=== PATIENT | female | born 2000 | race Hispanic/Latino ===

== ENCOUNTER 2021-05-22 17:34 | Emergency (ER) | payer BC ==
[~2021-05-22] VITALS: Ht 157.5 cm; Wt 90.7 kg
[2021-05-22 17:37] VITALS: BP 144/92
[2021-05-22 18:18] LABS: BASOPHILS % (AUTO) 0.4 % (0.0-5.0); EOSINOPHILS % (AUTO) 1.3 % (0.0-8.0); HEMATOCRIT 40.8 % (36-48); LYMPHOCYTES % (AUTO) 21.7 % (21.0-51.0); MEAN CORPUSCULAR HEMOGLOBIN 27.5 pg (27.0-33.0); MEAN CORPUSCULAR HGB CONC 33.1 g/dL (32.0-36.0); MEAN CORPUSCULAR VOLUME 83.1 fL (80-100); MONOCYTES % (AUTO) 6.2 % (3.0-13.0); PLATELET COUNT (AUTO) 337 K/uL (130-400); RED BLOOD CELL COUNT(AUTO) 4.91 MIL/uL (4.00-5.50); RED CELL DISTRIBUTION WIDTH 11.9 % (11.0-15.5); WHITE BLOOD COUNT (AUTO) 9.6 K/uL (4.8-10.8)
[2021-05-22 18:30] LABS: CARBON DIOXIDE 26 mmol/L (21-32); CHLORIDE 103 mmol/L (101-111); CREATININE 0.8 mg/dL (0.5-1.5); GLOMERULAR FILTR. RATE CALC 96 mL/min (>60); GLUCOSE,RANDOM 93 mg/dL (70-105); POTASSIUM 4.1 mmol/L (3.5-5.1); SODIUM SERUM 139 mmol/L (136-145); UREA NITROGEN, BLOOD 12 mg/dL (7-18)
[2021-05-22 18:41] LABS: ALANINE AMINOTRANSFERASE 45 U/L (12-78); ASPARTATE AMINOTRANSFERASE 36 U/L (10-37); BILIRUBIN,TOTAL 1.3 mg/dL (0.2-1.0); CREATINE KINASE, TOTAL 156 U/L (21-232); MYOGLOBIN 27 ng/mL (10-92); TOTAL PROTEIN, SERUM 8.2 g/dL (6.0-8.3); TROPONIN I < 0.04 ng/mL (0.00-0.06)
[2021-05-22] MEDS ORDERED: LIDOCAINE HCL 2% VISCOUS 15 ML UDCUP PO ONE (21:15)
[2021-05-22] MEDS ORDERED: MAG/ALUM/SIMETH 30 ML UDCUP PO ONE (21:15)
[2021-05-22] MEDS ORDERED: FAMOTIDINE 20MG TAB PO ONE (21:15)
[2021-05-22 21:30] VITALS: BP 144/92
[2021-05-22] MEDS ORDERED: FAMO-136 PO (22:06)
[2021-05-22 22:18] VITALS: BP 135/82
== END 2021-05-22 22:25 | disposition home or self-care (01) ==
LOC: EDH 18:40
DX: K29.70 Gastritis, unspecified, without bleeding (principal); R07.89 Other chest pain; Z87.442 Personal history of urinary calculi
CPT/HCPCS: 36415; 71045; 80053; 81025; 82550; 83690; 83874; 84484; 85025; 93005

== ENCOUNTER 2021-06-24 02:29 | Emergency (ER) | payer BC ==
[~2021-06-24] VITALS: Ht 157.5 cm; Wt 92.1 kg
[~2021-06-24 02:29] MED LIST: FAMO-136 PO
[2021-06-24 02:42] VITALS: BP 143/82
[2021-06-24] MEDS ORDERED: 0.9%NACL 1000ML 1,000 ML IV ONE (03:00)
[2021-06-24] MEDS ORDERED: ONDANSETRON 4MG INJ ONE (03:17)
[2021-06-24] MEDS ORDERED: METOCLOPRAMIDE 10 MG/2 ML VIAL ONE (03:17)
[2021-06-24] MEDS ORDERED: KETOROLAC 30MG VIAL (30MG/ML) ONE (03:18)
[2021-06-24 03:29] LABS: APPEARANCE,URINE Clear (CLEAR); BILIRUBIN,URINE Negative (NEGATIVE); COLOR,URINE Yellow (YELLOW); GLUCOSE, URINE (UA) Negative (NEGATIVE); KETONES,URINE Trace mg/dL (NEGATIVE); LEUKOCYTE ESTERASE ,URINE Trace (NEGATIVE); NITRATE,URINE Negative (NEGATIVE); OCCULT BLOOD,URINE Large (NEGATIVE); PROTEIN,URINE Trace mg/dL (NEGATIVE)
[2021-06-24 03:29] LABS: BASOPHILS % (AUTO) 0.4 % (0.0-5.0); EOSINOPHILS % (AUTO) 1.1 % (0.0-8.0); LYMPHOCYTES % (AUTO) 20.5 % (21.0-51.0); MEAN CORPUSCULAR HEMOGLOBIN 28.9 pg (27.0-33.0); MEAN CORPUSCULAR HGB CONC 34.3 g/dL (32.0-36.0); MEAN CORPUSCULAR VOLUME 84.3 fL (80-100); MONOCYTES % (AUTO) 8.2 % (3.0-13.0); NEUTROPHILS % (AUTO) 69.6 % (40.0-77.0); PLATELET COUNT (AUTO) 291 K/uL (130-400); RED BLOOD CELL COUNT(AUTO) 4.39 MIL/uL (4.00-5.50); RED CELL DISTRIBUTION WIDTH 12.1 % (11.0-15.5)
[2021-06-24 03:30] LABS: CREATININE 0.9 mg/dL (0.5-1.5); POTASSIUM 3.8 mmol/L (3.5-5.1)
[2021-06-24 03:30] LABS: HCG,QUAL RESULT NEGATIVE (NEGATIVE)
[2021-06-24 03:31] VITALS: BP 136/74
[2021-06-24 03:35] LABS: ALBUMIN 3.7 g/dL (3.5-5.0); BILIRUBIN,TOTAL 0.9 mg/dL (0.2-1.0); TOTAL PROTEIN, SERUM 7.5 g/dL (6.0-8.3)
[2021-06-24 03:50] LABS: BACTERIA,URINE Few /HPF (None Seen); MUCUS,URINE Rare LPF (None Seen); WBC,URINE 0-1 /HPF (0-1)
[2021-06-24 03:51] LABS: CALCIUM OXALATE CRYSTALS,UR Few /LPF (None Seen)
[2021-06-24 04:47] VITALS: BP 139/71
[2021-06-24 05:54] VITALS: BP 127/73
[2021-06-24] MEDS ORDERED: TAMSULOSIN HCL 0.4 MG CAP.ER.24H ONE (06:12)
[2021-06-24 06:53] VITALS: BP 123/79
[2021-06-24] MEDS ORDERED: DiphenhydrAMINE HCL 50 MG/ML VIAL IV SCH (07:30)
[2021-06-24] MEDS ORDERED: MELO7.5T12 PO (07:52)
[2021-06-24] MEDS ORDERED: TAMS-1 PO (07:52)
[2021-06-24] MEDS ORDERED: DICY20TA2 PO (07:52)
[2021-06-24] MEDS ORDERED: ONDA4TAB10 PO (07:52)
[2021-06-24] MEDS ORDERED: METO-296 PO (07:52)
[2021-06-24 07:58] VITALS: BP 103/62
[2021-06-25] MEDS ORDERED: TAMSULOSIN HCL 0.4 MG CAP.ER.24H PO SCH (07:14)
== END 2021-06-24 08:18 | disposition home or self-care (01) ==
LOC: EDH 02:29
DX: N20.1 Calculus of ureter (principal); Z79.899 Other long term (current) drug therapy; Z79.1 Long term (current) use of non-steroidal anti-inflammatories (NSAID)
CPT/HCPCS: 36415; 74176; 80053; 81001; 81025; 83690; 85025; 96361; 96374; 96375; 99285; J1885; J2405; J2765; J7030

== ENCOUNTER 2021-08-11 21:23 | Emergency (ER) | payer BC ==
[~2021-08-11] VITALS: Ht 157.5 cm; Wt 88.9 kg
[~2021-08-11 21:23] MED LIST changes: +DICY20TA2 PO; +MELO7.5T12 PO; +METO-296 PO; +ONDA4TAB10 PO; +TAMS-1 PO
[2021-08-11 21:53] LABS: APPEARANCE,URINE Clear (CLEAR); BILIRUBIN,URINE Negative (NEGATIVE); COLOR,URINE Yellow (YELLOW); GLUCOSE, URINE (UA) Negative (NEGATIVE); KETONES,URINE Trace mg/dL (NEGATIVE); LEUKOCYTE ESTERASE ,URINE Trace (NEGATIVE); NITRATE,URINE Negative (NEGATIVE); OCCULT BLOOD,URINE Large (NEGATIVE); PH,URINE 5.5 (5.0-8.0); PROTEIN,URINE Trace mg/dL (NEGATIVE)
[2021-08-11 22:16] LABS: BACTERIA,URINE Few /HPF (None Seen); CALCIUM OXALATE CRYSTALS,UR Few /LPF (None Seen); MUCUS,URINE Few LPF (None Seen); SQUAMOUS EPITHELIAL CELL,UR Few /HPF (0-2)
[2021-08-12] MEDS ORDERED: TAMSULOSIN HCL 0.4 MG CAP.ER.24H PO ONE (01:00)
[2021-08-12] MEDS ORDERED: 0.9%NACL 1000ML 1,000 ML IV ONE (01:00)
[2021-08-12] MEDS ORDERED: KETOROLAC 15MG/ML VIAL (15MG/ML) IV ONE (01:00)
[2021-08-12 02:22] LABS: BASOPHILS % (AUTO) 0.3 % (0.0-5.0); EOSINOPHILS % (AUTO) 0.1 % (0.0-8.0); HEMATOCRIT 36.9 % (36-48); LYMPHOCYTES % (AUTO) 8.6 % (21.0-51.0); MEAN CORPUSCULAR HEMOGLOBIN 28.3 pg (27.0-33.0); MEAN CORPUSCULAR HGB CONC 33.9 g/dL (32.0-36.0); MEAN CORPUSCULAR VOLUME 83.7 fL (80-100); MONOCYTES % (AUTO) 4.5 % (3.0-13.0); NEUTROPHILS % (AUTO) 85.8 % (40.0-77.0); PLATELET COUNT (AUTO) 411 K/uL (130-400); RED BLOOD CELL COUNT(AUTO) 4.41 MIL/uL (4.00-5.50); RED CELL DISTRIBUTION WIDTH 11.9 % (11.0-15.5); WHITE BLOOD COUNT (AUTO) 18.2 K/uL (4.8-10.8)
[2021-08-12 02:29] LABS: CREATININE 0.9 mg/dL (0.5-1.5)
[2021-08-12 02:34] LABS: ALBUMIN 3.7 g/dL (3.5-5.0); BILIRUBIN,TOTAL 1.2 mg/dL (0.2-1.0); TOTAL PROTEIN, SERUM 7.8 g/dL (6.0-8.3)
[2021-08-12 03:04] VITALS: BP 111/76
[2021-08-12] MEDS ORDERED: ONDA4TAB4 PO (04:03)
[2021-08-12] MEDS ORDERED: TAMS-1 PO (04:03)
[2021-08-12] MEDS ORDERED: KETO10 PO (04:03)
[2021-08-12 04:12] VITALS: BP 120/70
== END 2021-08-12 04:25 | disposition home or self-care (01) ==
LOC: EDH 21:23
DX: N13.2 Hydronephrosis with renal and ureteral calculous obstruction (principal); Z79.1 Long term (current) use of non-steroidal anti-inflammatories (NSAID); Z79.899 Other long term (current) drug therapy
CPT/HCPCS: 36415; 74176; 80053; 81001; 81025; 85025; 96361 ×2; 96374; 99284; J1885; J7030

== ENCOUNTER 2022-12-29 16:37 | Emergency (ER) | payer OTHER, BC ==
[~2022-12-29] VITALS: Ht 157.5 cm; Wt 99.8 kg
[~2022-12-29 16:37] MED LIST changes: +KETO10 PO; +ONDA4TAB4 PO
[2022-12-29 18:31] VITALS: BP 142/90
== END 2022-12-29 19:16 | disposition home or self-care (01) ==
LOC: EDH 16:37
DX: M79.604 Pain in right leg (principal); M79.89 Other specified soft tissue disorders; Z79.899 Other long term (current) drug therapy; Z87.442 Personal history of urinary calculi
CPT/HCPCS: 93971

== ENCOUNTER 2024-01-02 20:02 | Emergency (ER) | payer OTHER, BC ==
[~2024-01-02] VITALS: Ht 157.5 cm; Wt 108.9 kg
[2024-01-02 20:03] VITALS: BP 160/95; PULSE 85; RESP 20
[2024-01-02 20:42] LABS: BASOPHILS # (AUTO) 0.04 K/uL (0.00-0.20); BASOPHILS % (AUTO) 0.4 % (0.0-5.0); EOSINOPHILS # (AUTO) 0.12 K/uL (0.00-0.70); EOSINOPHILS % (AUTO) 1.3 % (0.0-8.0); HEMATOCRIT 36.7 % (36-48); IMMATURE GRANULOCYTE ABSOLUTE 0.02 K/uL (0-1); LYMPHOCYTES # (AUTO) 2.6 K/uL (1.0-4.8); LYMPHOCYTES % (AUTO) 28.8 % (21.0-51.0); MEAN CORPUSCULAR HEMOGLOBIN 28.9 pg (27.0-33.0); MEAN CORPUSCULAR HGB CONC 34.9 g/dL (32.0-36.0); MEAN CORPUSCULAR VOLUME 82.8 fL (79-99); MONOCYTES # (AUTO) 0.6 K/uL (0.1-1.0); MONOCYTES % (AUTO) 6.8 % (3.0-13.0); NEUTROPHILS # (AUTO) 5.6 K/uL (1.8-7.7); NEUTROPHILS % (AUTO) 62.5 % (40.0-77.0); PLATELET COUNT (AUTO) 311 K/uL (130-400); RED BLOOD CELL COUNT(AUTO) 4.43 MIL/uL (4.00-5.50); RED CELL DISTRIBUTION WIDTH 11.9 % (11.0-15.5); WHITE BLOOD COUNT (AUTO) 8.9 K/uL (4.8-10.8)
[2024-01-02 20:48] LABS: APPEARANCE,URINE CLEAR (CLEAR); BILIRUBIN,URINE NEGATIVE (NEGATIVE); COLOR,URINE COLORLESS (YELLOW); GLUCOSE, URINE (UA) NEGATIVE (NEGATIVE); KETONES,URINE NEGATIVE (NEGATIVE); LEUKOCYTE ESTERASE ,URINE NEGATIVE Leu/uL (NEGATIVE); NITRATE,URINE NEGATIVE (NEGATIVE); OCCULT BLOOD,URINE NEGATIVE (NEGATIVE); PROTEIN,URINE NEGATIVE (NEGATIVE); UROBILINOGEN,URINE 0.2 mg/dL (0.2-1.0)
[2024-01-02 20:49] LABS: ADD UA MICROSCOPIC NO; HCG,QUALITATIVE URINE NEGATIVE (NEGATIVE)
[2024-01-02 20:50] LABS: CREATININE 0.6 mg/dL (0.5-1.5); POTASSIUM 3.9 mmol/L (3.5-5.1)
[2024-01-02 20:59] LABS: ALBUMIN 3.8 g/dL (3.5-5.0); BILIRUBIN,TOTAL 1.2 mg/dL (0.2-1.0); MAGNESIUM 1.9 mg/dL (1.80-2.40); TOTAL PROTEIN, SERUM 7.6 g/dL (6.0-8.3)
[2024-01-02 21:34] LABS: B-TYPE NATRIURETIC PEPTIDE 12 pg/mL (0-100)
== END 2024-01-03 02:51 | disposition home or self-care (01) ==
LOC: EDH 20:02
DX: M79.89 Other specified soft tissue disorders (principal); M79.662 Pain in left lower leg; Z79.899 Other long term (current) drug therapy; Z98.890 Other specified postprocedural states
CPT/HCPCS: 36415; 71045; 80053; 81003; 81025; 83735; 83880; 84484; 85025; 85378; 93005; 93971